=== PATIENT | male | born 1995 | race African-American/Black ===

== ENCOUNTER 2018-07-23 08:38 | Emergency (ER) | payer OTHER ==
[~2018-07-23] VITALS: Ht 170.2 cm; Wt 83.9 kg
[2018-07-23] MEDS ORDERED: PRILOSEC2.5 MG PO (08:44)
== END 2018-07-23 09:48 | disposition home or self-care (01) ==
LOC: ER 08:38 → EDBD 08:43 → ER 08:43
DX: M62.830 Muscle spasm of back (principal)

== ENCOUNTER 2020-06-15 11:26 | Emergency (ER) | payer OTHER ==
[~2020-06-15] VITALS: Ht 170.2 cm; Wt 81.6 kg
[~2020-06-15 11:26] MED LIST: PRILOSEC2.5 MG PO
[2020-06-15] MEDS ORDERED: AMOX1TAB5 PO (17:15)
[2020-06-15] MEDS ORDERED: INTESTINEX680 M2 PO (17:15)
[2020-06-15] MEDS ORDERED: PEPCID AC20 MG PO (17:15)
== END 2020-06-15 17:28 | disposition home or self-care (01) ==
LOC: ER 11:26 → EDBD 11:58 → ER 11:58
DX: L03.113 Cellulitis of right upper limb (principal); S40.861A Insect bite (nonvenomous) of right upper arm, initial encounter; W57.XXXA Bitten or stung by nonvenomous insect and other nonvenomous arthropods, initial encounter; Y93.89 Activity, other specified; Y92.89 Other specified places as the place of occurrence of the external cause; Y99.8 Other external cause status